=== PATIENT | female | born 1980 | race American Indian/Alaskan Native ===

== ENCOUNTER 2017-12-31 13:52 | Emergency (ER) | payer MEDICAID ==
[2017-12-31 14:52] VITALS: BP 113/75
[2017-12-31] MEDS ORDERED: TORADOL IM ONE (17:02)
[2017-12-31] MEDS ORDERED: TYLENOL PO ONE (17:02)
[2017-12-31 17:20] LABS: HCG Qualitative,Urine Negative (Negative)
[2017-12-31 17:24] LABS: Bacteria,Urine 1+ /HPF (Negative); Bilirubin,Urine NEG (Negative); Blood,Urine NEG (Negative); Color,Urine Yellow (Yellow); Mucus,Urine 1+ /HPF; Protein,Urine <15 mg/dL mg/dL (Negative)
--- NOTE | 2017-12-31 17:28 | Emergency Department Report ---
Chief Complaint: Neuro Symptoms/Deficit Stated Complaint: NUMBNESS IN HANDS/GE/VOMITNG Time Seen by Provider: 12/31/17 16:28 - HPI History of Present Illness: The patient is a 37-year-old female who presents for evaluation of headache and numbness and tingling in the upper extremity as per the patient reports headache since yesterday and intermittent episodes of tingling of the bilateral distal upper extremities, lasting for minutes at a time and self resolving. She states that her headache has been constant since yesterday, achy in quality , currently mild in severity. The patient denies fever, head injury, neck pain, neck stiffness, vision or hearing changes, smell or taste changes, paresthesias elsewhere, facial drooping, lateralizing motor weakness in the arms or legs, slurred speech, seizure-like activity, urine or bowel incontinence or retention , or other focal neurological deficit. - Exam Vital Signs: Vital Signs 12/31/17 14:49 Temperature 98 F Pulse Rate 77 Respiratory 18 Rate Blood Pressure 113/75 O2 Sat by Pulse 100 Oximetry Physical Exam: General: well-nourished, well-developed, no acute distress Head: Normocephalic, atraumatic Eyes: normal sclera, PERRL, EOM intact ENT: Mucous membranes are pink and moist Neck: trachea midline, neck supple, No neck stiffness, no cervical adenopathy Respiratory: Breath sounds equal bilaterally, no wheezing, rales, or rhonchi Cardio: S1 and S2 present, no murmurs, rubs, gallops, capillary refill is brisk Abdomen: Normoactive bowel sounds, soft abdomen, no rigidity, no guarding or rebound tenderness Chest WALL/Back: No tenderness to palpation of the chest wall, no CVA tenderness with percussion Musc: No pitting edema Skin: No rash Neuro: alert oriented x4, normal cognition, speech normal, no facial drooping, no uvula or tongue deviation on protrusion, no deficit with rotation of neck or shoulder shrug, no obvious gross motor deficit in the upper or lower extremities with flexion or extension at the shoulder, elbow, wrist, hip, knee, or ankle bilaterally, no obvious gross sensation deficit to crude touch or 2 pt discrimination, 2+ symmetric reflexes on DTR testing, no coordination deficit with [id number] or [id number] testing, Babinski downgoing, romberg negative, patient able to to ambulate without abnormal gait Psych: Normal affect MSE screening note: Focused history and physical exam performed. Due to findings the following was ordered: ED Disposition for MSE Condition: Stable Referrals: PRIMARY CARE, [Primary Care Provider] - 3-5 Days
[2017-12-31 17:49] LABS: Basophils % (Auto) 0.3 % (0.0-1.8); Eosinophils % (Auto) 0.3 % (0.0-4.3); Hematocrit 39.7 % (30.3-42.9); Hemoglobin 13.2 gm/dl (10.1-14.3); Lymphocytes # (Auto) 0.7 K/mm3 (1.2-5.4); Lymphocytes % (Auto) 13.1 % (13.4-35.0); Mean Corpuscular HGB Conc 33 % (30-34); Mean Corpuscular Hemoglobin 29 pg (28-32); Mean Corpuscular Volume 87 fl (79-97); Monocytes # (Auto) 0.4 K/mm3 (0.0-0.8); Monocytes % (Auto) 7.5 % (0.0-7.3); Platelet Count 175 K/mm3 (140-440); Red Blood Count 4.57 M/mm3 (3.65-5.03); Red Cell Distribution Width 17.2 % (13.2-15.2)
[2017-12-31 18:09] LABS: BUN/Creatinine Ratio 8; Blood Urea Nitrogen 4 mg/dL (7-17); Calcium 8.8 mg/dL (8.4-10.2); Hemolysis Index 3
== END 2017-12-31 19:40 | disposition left against medical advice (07) ==
LOC: ED 13:52
DX: R51 Headache (principal)
CPT/HCPCS: 36415; 80048; 81001; 81025; 84703; 85025; 96372; 99283; J1885

== ENCOUNTER 2020-03-19 13:33 | Emergency (ER) | payer MEDICAID, OTHER ==
--- NOTE | 2020-03-19 16:21 | Emergency Department Report ---
HPI - General Chief Complaint: Pain General PUI?: No Time Seen by Provider: 03/19/20 15:44 - HPI HPI: Room 4 The patient is a 39-year-old female present with a chief complaint of pain. The patient has a history of hepatitis C and states she was recently started on a medication prednisolone for treatment. The patient states whenever she takes the prednisolone she developed pain in her right upper quadrant. The patient states when she does not take the medication there is no pain. The patient states she has not yet contacted the prescribing physician. The patient states she came to the emergency department to see if she can get medication to take with her prednisolone or if there is an alternative. The patient states she is able to take Tylenol and was administered it while in the hospital ED Past Medical Hx - Past Medical History Previous Medical History?: Yes Hx Liver Disease: Yes (hepatitis C) - Surgical History Additional Surgical History: Bowel resection (patient states that the bowel "just "), colostomy with reversal - Family History Family history: no significant - Social History Smoking Status: Never Smoker Substance Use Type: Alcohol - Medications Home Medications: Home Medications Medication Instructions Recorded Confirmed Last Taken Type HYDROcodone/APAP 5-325 [[place] 1 each PO Q6HR PRN #7 tablet 03/19/20 Unknown Rx 5/325] ED Review of Systems ROS: Stated complaint: PAIN Other details as noted in HPI Constitutional: no symptoms reported Respiratory: no symptoms reported Endocrine: no symptoms reported Gastrointestinal: abdominal pain Physical Exam - Physical Exam Vital Signs: Vital Signs 03/19/20 03/19/20 03/19/20 13:35 14:47 14:48 Temperature 98.7 F Pulse Rate 100 H 91 H Respiratory 16 18 16 Rate Blood Pressure 112/59 Blood Pressure 106/60 [Right] O2 Sat by Pulse 100 100 100 Oximetry Physical Exam: GENERAL: The patient is well-developed well-nourished female lying on stretcher not appearing to be in acute distress. [] HEENT: Normocephalic. Atraumatic. Extraocular motions are intact. Patient has moist mucous membranes. Icteric sclera NECK: Supple. Trachea midline CHEST/LUNGS: Clear to auscultation. There is no respiratory distress noted. HEART/CARDIOVASCULAR: Regular. There is no tachycardia. There is no gallop rub or murmur. ABDOMEN: Abdomen is soft, nontender. Patient has normal bowel sounds. There is no abdominal distention. SKIN: There is no rash. There is no edema. There is no diaphoresis. NEURO: The patient is awake, alert, and oriented. The patient is cooperative. The patient has normal speech MUSCULOSKELETAL: There is no evidence of acute injury. ED Course Vital Signs 03/19/20 03/19/20 03/19/20 13:35 14:47 14:48 Temperature 98.7 F Pulse Rate 100 H 91 H Respiratory 16 18 16 Rate Blood Pressure 112/59 Blood Pressure 106/60 [Right] O2 Sat by Pulse 100 100 100 Oximetry ED Medical Decision Making - Differential Diagnosis Medication reaction, anxiety Critical care attestation.: If time is entered above; I have spent that time in minutes in the direct care of this critically ill patient, excluding procedure time. ED Disposition Clinical Impression: Medication reaction Disposition: [id number]-01 TO HOME OR SELFCARE Is pt being admited?: No Does the pt Need Aspirin: No Condition: Stable Additional Instructions: Return to the emergency department should you develop worsening symptoms, inability to tolerate food or liquids, high fever or any other concerns Prescriptions: HYDROcodone/APAP 5-325 [[place] 5/325] 1 each PO Q6HR PRN #7 tablet PRN Reason: Pain Referrals: PRIMARY CARE, [Referring] - FRANKIE Time of Disposition: 16:21
[2020-03-19 16:34] VITALS: BP 112/70
== END 2020-03-19 16:30 | disposition home or self-care (01) ==
LOC: ED 13:33
DX: R10.11 Right upper quadrant pain (principal)
CPT/HCPCS: 99282